=== PATIENT | male | born 1950 | race Caucasian/White ===

== ENCOUNTER → 2016-11-29 | Outpatient (CLI) | payer OTHER | LOC: BMCIMAGING 09:44 | PROVIDERS: ATTEND Nurse Practitioner Family | DX: Z77.120 Contact with and (suspected) exposure to mold (toxic) (principal) ==

== ENCOUNTER → 2017-03-07 | Outpatient (CLI) | payer OTHER | LOC: BMCIMAGING 14:06 | PROVIDERS: ATTEND Internal Medicine Rheumatology | DX: M19.072 Primary osteoarthritis, left ankle and foot (principal); M19.071 Primary osteoarthritis, right ankle and foot; M20.12 Hallux valgus (acquired), left foot; M20.11 Hallux valgus (acquired), right foot ==

== ENCOUNTER → 2017-07-18 | Outpatient (CLI) | payer OTHER | LOC: BMCIMAGING 14:10 | PROVIDERS: ATTEND Podiatrist Foot & Ankle Surgery | DX: S93.145A Subluxation of metatarsophalangeal joint of left lesser toe(s), initial encounter (principal); Z87.81 Personal history of (healed) traumatic fracture ==

== ENCOUNTER → 2017-07-25 | Outpatient (CLI) | payer OTHER | LOC: FIMAGING 14:40 | PROVIDERS: ATTEND Podiatrist Foot & Ankle Surgery | DX: M21.751 Unequal limb length (acquired), right femur (principal); M21.761 Unequal limb length (acquired), right tibia ==

== ENCOUNTER → 2018-05-12 | Outpatient (CLI) | payer OTHER | LOC: FIMAGING 14:50 | PROVIDERS: ATTEND Podiatrist Foot & Ankle Surgery | DX: M19.072 Primary osteoarthritis, left ankle and foot (principal); S92.352S Displaced fracture of fifth metatarsal bone, left foot, sequela; M77.52 Other enthesopathy of left foot and ankle ==

== ENCOUNTER → 2018-05-22 | Outpatient (CLI) | payer OTHER | LOC: FIMAGING 14:37 | PROVIDERS: ATTEND Podiatrist Foot & Ankle Surgery | DX: R60.9 Edema, unspecified (principal) ==